=== PATIENT | male | born 1965 | race Two or more races ===

== ENCOUNTER 2024-04-01 18:43 | Emergency (ER) | payer BC, MEDICAID ==
[2024-04-01] MEDS: HYDROCODONE/ACETAMINOPHEN 5-325 MG TABLET PO ONE (21:18)
[2024-04-01] MEDS ORDERED: POLY119P3 PO (21:47)
[2024-04-01] MEDS ORDERED: HYDR-4072 PO ×2 (21:47→21:49)
[2024-04-01] MEDS ORDERED: IBUP-1554 PO (21:47)
[2024-04-01 22:13] VITALS: BP 137/68; PULSE 58; RESP 20
== END 2024-04-01 22:41 | disposition home or self-care (01) ==
LOC: EMS 18:43
DX: S92.002A Unspecified fracture of left calcaneus, initial encounter for closed fracture (principal); X58.XXXA Exposure to other specified factors, initial encounter; Y93.89 Activity, other specified; Y92.89 Other specified places as the place of occurrence of the external cause; Y99.8 Other external cause status
CPT/HCPCS: 29515; 99283